=== PATIENT | male | born 1975 | race Caucasian/White ===

== ENCOUNTER 2023-08-16 00:22 | Inpatient (IN) | payer OTHER ==
[~2023-08-16] VITALS: Ht 190.5 cm; Wt 99.8 kg
[~2023-08-16 00:22] MED LIST: OLAN20TA3 PO; QUET100T PO
[2023-08-16 01:34] LABS: BASOPHILS % (AUTO) 0.5 % (0.0-2.0); EOSINOPHILS # (AUTO) 0.4 K/uL (0.0-0.7); EOSINOPHILS % (AUTO) 5.6 % (0.0-6.0); HEMATOCRIT 37 % (39-51); HEMOGLOBIN 12.6 g/dL (13.5-17.5); LYMPHOCYTES # (AUTO) 1.9 K/uL (0.8-4.8); LYMPHOCYTES % (AUTO) 29.5 % (20.0-44.0); MEAN CORPUSCULAR HEMOGLOBIN 32 PG (26.0-33.0); MEAN CORPUSCULAR HGB CONC 34 g/dl (31.0-36.0); MEAN CORPUSCULAR VOLUME 95 fL (80-96); MONOCYTES # (AUTO) 0.8 K/uL (0.1-1.30); MONOCYTES % (AUTO) 12.7 % (2.0-12.0); NEUTROPHILS # (AUTO) 3.3 K/uL (1.8-8.9); NEUTROPHILS % (AUTO) 51.7 % (43.0-81.0); PLATELET COUNT (AUTO) 247 K/uL (150-450); RED BLOOD CELL COUNT(AUTO) 3.91 MIL/uL (4.5-6.0); RED CELL DISTRIBUTION WIDTH 14.3 % (11.5-15.0); WHITE BLOOD COUNT (AUTO) 6.5 K/uL (4.3-11.0)
[2023-08-16 01:54] LABS: CALCIUM, SERUM 9.1 mg/dL (8.5-10.1); CARBON DIOXIDE 26 mmol/L (21-32); CHLORIDE 106 mmol/L (98-107); CREATININE 0.9 mg/dL (0.6-1.3); GLUCOSE 105 mg/dL (74-106); POTASSIUM 3.6 mmol/L (3.5-5.1); SODIUM SERUM 140 mmol/L (136-145); UREA NITROGEN, BLOOD 16 mg/dL (7-18)
[2023-08-16 01:58] LABS: LACTIC ACID 2.5 mmol/L (0.4-2.0)
[2023-08-16 02:05] LABS: ALANINE AMINOTRANSFERASE 10 U/L (12-78); ALBUMIN 3.3 g/dL (3.4-5.0); ALKALINE PHOSPHATASE 93 U/L (46-116); ASPARTATE AMINOTRANSFERASE 15 U/L (15-37); BILIRUBIN,TOTAL 0.2 mg/dL (0.2-1.0); TOTAL PROTEIN, SERUM 6.8 g/dL (6.4-8.2)
[2023-08-16] MEDS ORDERED: VANCOMYCIN 500 MG VIAL ONE (02:19)
[2023-08-16] MEDS: IV NS 0.9% 1,000 ML IV ONE (02:29)
[2023-08-16] MEDS: VANCOMYCIN HCL 1.25 GM in IV D5W 260 ML IV ONE (02:29)
[2023-08-16 04:01] LABS: APPEARANCE,URINE CLEAR (CLEAR); BILIRUBIN,URINE NEGATIVE (NEGATIVE); BLOOD, URINE TRACE-INTA Ery/uL (NEGATIVE); COLOR,URINE YELLOW (YELLOW); KETONES,URINE NEGATIVE (NEGATIVE); LEUKOCYTE ESTERASE ,URINE NEGATIVE (NEGATIVE); NITRITE, URINE NEGATIVE (NEGATIVE); PH,URINE 5.5 (5.0-8.0); PROTEIN,URINE TRACE mg/dl (NEGATIVE); UGLUCOSE NEGATIVE (NEGATIVE); UROBILINOGEN,URINE 0.2 EU/dL (0.2)
[2023-08-16 04:02] LABS: ADD URINE CULTURE NO; BACTERIA,URINE None seen /HPF (None Seen); SQUAMOUS EPITHELIAL CELL,UR Few /HPF (None Seen); WBC,URINE 0-2 /HPF (0-3)
[2023-08-16 04:12] LABS: BARBITURATE, URINE NEGATIVE (NEGATIVE); BENZODIAZEPINE, URINE NEGATIVE (NEGATIVE); CANNABINOID, URINE NEGATIVE (NEGATIVE); COCCAINE, URINE NEGATIVE (NEGATIVE); OPIATE, URINE NEGATIVE (NEGATIVE); PHENCYCLIDINE SCREEN,URINE NEGATIVE (NEGATIVE)
[2023-08-16 04:36] LABS: AMPHETAMINE, URINE POSITIVE (NEGATIVE)
[2023-08-16 04:48] LABS: BILIRUBIN,DIRECT 0.1 mg/dL (0.0-0.2)
[2023-08-16 04:54] LABS: LACTIC ACID REFLEX 1.1 mmol/L (0.4-1.9)
[2023-08-16] MEDS: PIPERACILLIN /TAZOBACTAM 3.375 G in IV D5W 50 ML IV ONE (08:16)
[2023-08-16] MEDS ORDERED: MAG HYDROX/AL HYDROX/SIMETH 30 ML UDC PO PRN (09:00)
[2023-08-16] MEDS ORDERED: ZOLPIDEM TARTRATE 5 MG TABLET PO PRN (09:00)
[2023-08-16] MEDS ORDERED: MAGNESIUM HYDROXIDE 30 ML UDC PO PRN (09:00)
[2023-08-16] MEDS ORDERED: ACETAMINOPHEN 325 MG TABLET PO PRN (09:00)
[2023-08-16] MEDS ORDERED: Z GUARD REMEDY 4 OZ OINT TP PRN (09:00)
[2023-08-16] MEDS ORDERED: ONDANSETRON HCL/PF 4 MG/2 ML VIAL IVP PRN (09:00)
[2023-08-16] MEDS: OLANZAPINE 10 MG TABLET PO SCH (09:55)
[2023-08-16 10:00] VITALS: BP 125/98; TEMP 98.1; O2SAT 100
[2023-08-16] MEDS: VANCOMYCIN 1 GM in IV D5W 250 ML IV SCH (10:00)
[2023-08-16] MEDS ORDERED: FENTANYL PF 100MCG/2ML AMPUL ONE (10:35)
[2023-08-16] MEDS ORDERED: KETAMINE HCL (500MG/10ML) 50 MG/ML VIAL ONE (10:35)
[2023-08-16] MEDS ORDERED: MIDAZOLAM HCL 2 MG/2ML VIAL ONE (10:35)
[2023-08-16] MEDS ORDERED: FAMOTIDINE/PF INJ 20 MG/2 ML VIAL IV ONE (10:36)
[2023-08-16] MEDS ORDERED: BUPIVACAINE 0.5 % PF 150 MG/30 ML VIAL ONE (10:37)
[2023-08-16] MEDS ORDERED: VANCOMYCIN 1 GM VIAL ONE (11:27)
[2023-08-16] MEDS: PIPERACILLIN /TAZOBACTAM 3.375 G in IV D5W 50 ML IV SCH (12:00)
[2023-08-16 12:50] VITALS: BP 115/79; TEMP 98.2; O2SAT 100
[2023-08-16 13:20] VITALS: BP 112/77; TEMP 98; O2SAT 97
[2023-08-16 13:50] VITALS: BP 115/80; TEMP 98.1; O2SAT 98
[2023-08-16 16:00] VITALS: BP 121/87; TEMP 98.2; O2SAT 100
[2023-08-16] MEDS: QUETIAPINE FUMARATE 100 MG TABLET PO SCH (17:19)
[2023-08-16 20:00] VITALS: BP 115/84; TEMP 98.2; O2SAT 100
[2023-08-17] MEDS: IV NS 0.9% 1,000 ML IV PRN (00:11)
[2023-08-17] MEDS: HYDROCODONE/APAP 10/325MG TABLET PO PRN (09:35)
[2023-08-17] MEDS: HYDROMORPHONE 1 MG/1 ML DISP.SYRIN IV PRN (11:52)
[2023-08-17 12:58] LABS: ALBUMIN 2.9 g/dL (3.4-5.0); BILIRUBIN,TOTAL 0.2 mg/dL (0.2-1.0); CALCIUM, SERUM 8.5 mg/dL (8.5-10.1); CREATININE 0.8 mg/dL (0.6-1.3); PHOSPHORUS 3.8 mg/dL (2.5-4.9); POTASSIUM 3.4 mmol/L (3.5-5.1)
[2023-08-17 13:24] LABS: BASOPHILS % (AUTO) 0.4 % (0.0-2.0); EOSINOPHILS # (AUTO) 0.5 K/uL (0.0-0.7); EOSINOPHILS % (AUTO) 9.5 % (0.0-6.0); HEMATOCRIT 35 % (39-51); HEMOGLOBIN 11.8 g/dL (13.5-17.5); LYMPHOCYTES # (AUTO) 1.6 K/uL (0.8-4.8); LYMPHOCYTES % (AUTO) 28.3 % (20.0-44.0); MEAN CORPUSCULAR HEMOGLOBIN 32 PG (26.0-33.0); MEAN CORPUSCULAR HGB CONC 34 g/dl (31.0-36.0); MEAN CORPUSCULAR VOLUME 95 fL (80-96); MONOCYTES # (AUTO) 0.6 K/uL (0.1-1.30); MONOCYTES % (AUTO) 10.2 % (2.0-12.0); NEUTROPHILS % (AUTO) 51.6 % (43.0-81.0); PLATELET COUNT (AUTO) 209 K/uL (150-450); RED CELL DISTRIBUTION WIDTH 14.4 % (11.5-15.0); WHITE BLOOD COUNT (AUTO) 5.7 K/uL (4.3-11.0)
[2023-08-17 16:00] VITALS: BP 107/71; TEMP 98.4; O2SAT 99
[2023-08-17] MEDS: VANCOMYCIN HCL 1.25 GM in IV D5W 250 ML IV SCH (17:30)
[2023-08-17] MEDS: POTASSIUM CHLORIDE 20 MEQ TAB.PRT.SR PO ONE (17:58)
[2023-08-17 20:00] VITALS: BP 116/83; TEMP 97.5; TEMP 97.9; O2SAT 100
[2023-08-18 06:44] LABS: BASOPHILS % (AUTO) 0.1 % (0.0-2.0); EOSINOPHILS # (AUTO) 0.5 K/uL (0.0-0.7); EOSINOPHILS % (AUTO) 8.1 % (0.0-6.0); HEMATOCRIT 34 % (39-51); HEMOGLOBIN 11.4 g/dL (13.5-17.5); LYMPHOCYTES # (AUTO) 1.7 K/uL (0.8-4.8); LYMPHOCYTES % (AUTO) 28.5 % (20.0-44.0); MEAN CORPUSCULAR HEMOGLOBIN 32 PG (26.0-33.0); MEAN CORPUSCULAR HGB CONC 33 g/dl (31.0-36.0); MEAN CORPUSCULAR VOLUME 95 fL (80-96); MONOCYTES # (AUTO) 0.6 K/uL (0.1-1.30); MONOCYTES % (AUTO) 10.4 % (2.0-12.0); NEUTROPHILS # (AUTO) 3.1 K/uL (1.8-8.9); NEUTROPHILS % (AUTO) 52.9 % (43.0-81.0); PLATELET COUNT (AUTO) 184 K/uL (150-450); RED CELL DISTRIBUTION WIDTH 14.2 % (11.5-15.0); WHITE BLOOD COUNT (AUTO) 5.8 K/uL (4.3-11.0)
[2023-08-18 07:11] LABS: CALCIUM, SERUM 8.3 mg/dL (8.5-10.1); CREATININE 0.7 mg/dL (0.6-1.3); POTASSIUM 3.8 mmol/L (3.5-5.1)
[2023-08-18 08:25] VITALS: BP 124/75; TEMP 98; O2SAT 98
[2023-08-18 16:10] VITALS: BP 115/80; TEMP 97.8; O2SAT 100
[2023-08-18 20:00] VITALS: BP 120/88; TEMP 97.9; O2SAT 100
[2023-08-19 09:20] LABS: BASOPHILS % (AUTO) 0.6 % (0.0-2.0); EOSINOPHILS # (AUTO) 0.4 K/uL (0.0-0.7); EOSINOPHILS % (AUTO) 8.3 % (0.0-6.0); HEMATOCRIT 35 % (39-51); HEMOGLOBIN 11.9 g/dL (13.5-17.5); LYMPHOCYTES # (AUTO) 1.6 K/uL (0.8-4.8); LYMPHOCYTES % (AUTO) 30.2 % (20.0-44.0); MEAN CORPUSCULAR HEMOGLOBIN 32 PG (26.0-33.0); MEAN CORPUSCULAR HGB CONC 34 g/dl (31.0-36.0); MEAN CORPUSCULAR VOLUME 94 fL (80-96); MONOCYTES # (AUTO) 0.6 K/uL (0.1-1.30); MONOCYTES % (AUTO) 10.8 % (2.0-12.0); NEUTROPHILS # (AUTO) 2.7 K/uL (1.8-8.9); NEUTROPHILS % (AUTO) 50.1 % (43.0-81.0); PLATELET COUNT (AUTO) 197 K/uL (150-450); RED BLOOD CELL COUNT(AUTO) 3.71 MIL/uL (4.5-6.0); RED CELL DISTRIBUTION WIDTH 13.9 % (11.5-15.0); WHITE BLOOD COUNT (AUTO) 5.3 K/uL (4.3-11.0)
[2023-08-19 09:27] LABS: CALCIUM, SERUM 8.5 mg/dL (8.5-10.1); CREATININE 0.9 mg/dL (0.6-1.3); POTASSIUM 3.5 mmol/L (3.5-5.1)
[2023-08-19 20:00] VITALS: BP 114/79; TEMP 97.5; O2SAT 99
[2023-08-20 07:30] VITALS: BP 95/65; TEMP 97.7; O2SAT 94
[2023-08-20 09:37] LABS: BASOPHILS % (AUTO) 0.3 % (0.0-2.0); EOSINOPHILS # (AUTO) 0.5 K/uL (0.0-0.7); EOSINOPHILS % (AUTO) 7.7 % (0.0-6.0); HEMATOCRIT 37 % (39-51); HEMOGLOBIN 12.4 g/dL (13.5-17.5); LYMPHOCYTES # (AUTO) 1.9 K/uL (0.8-4.8); LYMPHOCYTES % (AUTO) 30.6 % (20.0-44.0); MEAN CORPUSCULAR HEMOGLOBIN 32 PG (26.0-33.0); MEAN CORPUSCULAR HGB CONC 34 g/dl (31.0-36.0); MEAN CORPUSCULAR VOLUME 95 fL (80-96); MONOCYTES # (AUTO) 0.7 K/uL (0.1-1.30); MONOCYTES % (AUTO) 10.7 % (2.0-12.0); NEUTROPHILS # (AUTO) 3.2 K/uL (1.8-8.9); NEUTROPHILS % (AUTO) 50.7 % (43.0-81.0); PLATELET COUNT (AUTO) 215 K/uL (150-450); RED BLOOD CELL COUNT(AUTO) 3.86 MIL/uL (4.5-6.0); RED CELL DISTRIBUTION WIDTH 13.9 % (11.5-15.0); WHITE BLOOD COUNT (AUTO) 6.2 K/uL (4.3-11.0)
[2023-08-20 09:44] LABS: CALCIUM, SERUM 8.7 mg/dL (8.5-10.1); POTASSIUM 3.5 mmol/L (3.5-5.1)
[2023-08-21 08:00] VITALS: BP 110/76; TEMP 97.9; O2SAT 99
[2023-08-21] MEDS: METRONIDAZOLE 500MG/ NS 100ML 500 MG in PREMIX 1 EA IV SCH (13:50)
[2023-08-21] MEDS: CEFTRIAXONE 2 G in IV D5W 100 ML IV SCH (14:56)
[2023-08-21 16:00] VITALS: BP 100/63; TEMP 98.4; O2SAT 99
[2023-08-21 20:00] VITALS: BP 111/76; TEMP 97.9; O2SAT 100
[2023-08-22 08:00] VITALS: BP 94/65; TEMP 97.9; O2SAT 98
[2023-08-22] MEDS ORDERED: AMOX-430 PO (10:50)
== END 2023-08-22 14:00 | disposition home or self-care (01) | DRG 314 ==
LOC: ER 00:26 → MED 08:52
PROVIDERS: ADMIT Internal Medicine; ATTEND Internal Medicine
PROC: 0QBR0ZZ Excision of Left Toe Phalanx, Open Approach (ICD-10-PCS; principal; 2023-08-16)
PROC: 0SNQ0ZZ Release Left Toe Phalangeal Joint, Open Approach (ICD-10-PCS; 2023-08-16)
DX: M86.8X7 Other osteomyelitis, ankle and foot (principal); E87.20 Acidosis, unspecified; E44.1 Mild protein-calorie malnutrition; D63.8 Anemia in other chronic diseases classified elsewhere; L97.529 Non-pressure chronic ulcer of other part of left foot with unspecified severity; M87.9 Osteonecrosis, unspecified; I10 Essential (primary) hypertension; L03.032 Cellulitis of left toe; Z59.00 Homelessness unspecified; F17.210 Nicotine dependence, cigarettes, uncomplicated; E78.5 Hyperlipidemia, unspecified; Z79.899 Other long term (current) drug therapy; F15.11 Other stimulant abuse, in remission; Z89.432 Acquired absence of left foot
CPT/HCPCS: 36415; 73630-TC; 73700-TC; 80048-TC; 80053-TC; 80202-TC; 81001; 82248-TC; 83605-TC; 83735-TC; 84100-TC; 85025-TC; 86850-TC; 87040-TC; 88305-TC; 88311-TC; 97110-TC; 97112-TC; 97530-TC; A4216; A4223; G0378; J0696; J1100; J1170; J1885; J2250; J2405; J2543; J2704; J2765; J3010; J3370; J3490; J7030; J7050; J7060

== ENCOUNTER 2023-08-31 22:28 | Emergency (ER) | payer OTHER ==
[~2023-08-31] VITALS: Ht 182.9 cm; Wt 86.2 kg
[~2023-08-31 22:28] MED LIST changes: +AMOX-430 PO
[2023-08-31] MEDS ORDERED: IBUPROFEN 400 MG TABLET ONE (23:37)
[2023-08-31] MEDS: IBUPROFEN 400 MG TABLET PO ONE (23:39)
[2023-08-31 23:47] LABS: BASOPHILS # (AUTO) 0.1 K/uL (0.0-0.2); EOSINOPHILS # (AUTO) 0.3 K/uL (0.0-0.7); EOSINOPHILS % (AUTO) 2.9 % (0.0-6.0); HEMATOCRIT 44 % (39-51); HEMOGLOBIN 14.4 g/dL (13.5-17.5); LYMPHOCYTES # (AUTO) 2.4 K/uL (0.8-4.8); LYMPHOCYTES % (AUTO) 21.5 % (20.0-44.0); MEAN CORPUSCULAR HEMOGLOBIN 31 PG (26.0-33.0); MEAN CORPUSCULAR HGB CONC 33 g/dl (31.0-36.0); MEAN CORPUSCULAR VOLUME 94 fL (80-96); MONOCYTES # (AUTO) 0.7 K/uL (0.1-1.30); NEUTROPHILS # (AUTO) 7.6 K/uL (1.8-8.9); NEUTROPHILS % (AUTO) 68.6 % (43.0-81.0); PLATELET COUNT (AUTO) 290 K/uL (150-450); RED BLOOD CELL COUNT(AUTO) 4.64 MIL/uL (4.5-6.0); RED CELL DISTRIBUTION WIDTH 14.1 % (11.5-15.0); WHITE BLOOD COUNT (AUTO) 11.1 K/uL (4.3-11.0)
[2023-09-01 00:28] LABS: CALCIUM, SERUM 9.4 mg/dL (8.5-10.1); CARBON DIOXIDE 26 mmol/L (21-32); CHLORIDE 103 mmol/L (98-107); CREATININE 0.9 mg/dL (0.6-1.3); GLUCOSE 133 mg/dL (74-106); POTASSIUM 3.8 mmol/L (3.5-5.1); SODIUM SERUM 139 mmol/L (136-145); UREA NITROGEN, BLOOD 17 mg/dL (7-18)
[2023-09-01 00:34] LABS: ACETAMINOPHEN <10 ug/ml (10-30); ALANINE AMINOTRANSFERASE 25 U/L (12-78); ALBUMIN 3.7 g/dL (3.4-5.0); ALCOHOL, BLOOD 3 mg/dL (0-10); ALKALINE PHOSPHATASE 69 U/L (46-116); ASPARTATE AMINOTRANSFERASE 24 U/L (15-37); BILIRUBIN,DIRECT 0.1 mg/dL (0.0-0.2); BILIRUBIN,TOTAL 0.2 mg/dL (0.2-1.0); SALICYLATE 2.1 mg/dL (2.8-20.0)
[2023-09-01 01:54] LABS: APPEARANCE,URINE CLEAR (CLEAR); BILIRUBIN,URINE NEGATIVE (NEGATIVE); BLOOD, URINE NEGATIVE Ery/uL (NEGATIVE); COLOR,URINE YELLOW (YELLOW); KETONES,URINE NEGATIVE (NEGATIVE); LEUKOCYTE ESTERASE ,URINE NEGATIVE (NEGATIVE); NITRITE, URINE NEGATIVE (NEGATIVE); PROTEIN,URINE NEGATIVE (NEGATIVE); UGLUCOSE NEGATIVE (NEGATIVE); UROBILINOGEN,URINE 0.2 EU/dL (0.2)
[2023-09-01 02:04] LABS: AMPHETAMINE, URINE NEGATIVE (NEGATIVE); BARBITURATE, URINE NEGATIVE (NEGATIVE); BENZODIAZEPINE, URINE NEGATIVE (NEGATIVE); CANNABINOID, URINE NEGATIVE (NEGATIVE); COCCAINE, URINE NEGATIVE (NEGATIVE); PHENCYCLIDINE SCREEN,URINE NEGATIVE (NEGATIVE)
[2023-09-01 02:08] LABS: OPIATE, URINE POSITIVE (NEGATIVE)
[2023-09-01 06:57] VITALS: BP 127/70; TEMP 98; O2SAT 98
== END 2023-09-01 06:57 | disposition left against medical advice (07) ==
LOC: ER 22:38
DX: Z48.02 Encounter for removal of sutures (principal); F20.9 Schizophrenia, unspecified; I10 Essential (primary) hypertension; Z20.822 Contact with and (suspected) exposure to COVID-19
CPT/HCPCS: 36415; 80048-TC; 80076-TC; 85025-TC; G0480

== ENCOUNTER 2023-11-29 21:53 | Emergency (ER) | payer OTHER ==
[~2023-11-29] VITALS: Ht 190.5 cm; Wt 99.8 kg
[2023-11-30 00:33] LABS: BASOPHILS # (AUTO) 0.1 K/uL (0.0-0.2); BASOPHILS % (AUTO) 0.4 % (0.0-2.0); EOSINOPHILS # (AUTO) 0.1 K/uL (0.0-0.7); EOSINOPHILS % (AUTO) 0.4 % (0.0-6.0); HEMATOCRIT 39 % (39-51); HEMOGLOBIN 12.9 g/dL (13.5-17.5); LYMPHOCYTES # (AUTO) 1.6 K/uL (0.8-4.8); LYMPHOCYTES % (AUTO) 12.6 % (20.0-44.0); MEAN CORPUSCULAR HEMOGLOBIN 31 PG (26.0-33.0); MEAN CORPUSCULAR HGB CONC 34 g/dl (31.0-36.0); MEAN CORPUSCULAR VOLUME 93 fL (80-96); MONOCYTES # (AUTO) 0.6 K/uL (0.1-1.30); MONOCYTES % (AUTO) 4.4 % (2.0-12.0); NEUTROPHILS # (AUTO) 10.6 K/uL (1.8-8.9); NEUTROPHILS % (AUTO) 82.2 % (43.0-81.0); PLATELET COUNT (AUTO) 255 K/uL (150-450); RED BLOOD CELL COUNT(AUTO) 4.14 MIL/uL (4.5-6.0); RED CELL DISTRIBUTION WIDTH 14.3 % (11.5-15.0); WHITE BLOOD COUNT (AUTO) 12.9 K/uL (4.3-11.0)
[2023-11-30 00:34] LABS: APPEARANCE,URINE CLEAR (CLEAR); BILIRUBIN,URINE NEGATIVE (NEGATIVE); BLOOD, URINE TRACE-INTA Ery/uL (NEGATIVE); COLOR,URINE YELLOW (YELLOW); KETONES,URINE NEGATIVE (NEGATIVE); LEUKOCYTE ESTERASE ,URINE NEGATIVE (NEGATIVE); NITRITE, URINE NEGATIVE (NEGATIVE); PROTEIN,URINE TRACE mg/dl (NEGATIVE); UGLUCOSE NEGATIVE (NEGATIVE); UROBILINOGEN,URINE 0.2 EU/dL (0.2)
[2023-11-30 00:35] LABS: ADD URINE CULTURE NO; BACTERIA,URINE Rare /HPF (None Seen); SQUAMOUS EPITHELIAL CELL,UR Few /HPF (None Seen); WBC,URINE 0-2 /HPF (0-3)
[2023-11-30 00:55] LABS: CREATININE 0.8 mg/dL (0.6-1.3); POTASSIUM 3.4 mmol/L (3.5-5.1)
[2023-11-30 00:58] LABS: AMPHETAMINE, URINE POSITIVE (NEGATIVE); BARBITURATE, URINE NEGATIVE (NEGATIVE); BENZODIAZEPINE, URINE NEGATIVE (NEGATIVE); CANNABINOID, URINE NEGATIVE (NEGATIVE); COCCAINE, URINE NEGATIVE (NEGATIVE); OPIATE, URINE NEGATIVE (NEGATIVE); PHENCYCLIDINE SCREEN,URINE NEGATIVE (NEGATIVE)
[2023-11-30 01:01] LABS: ALBUMIN 3.3 g/dL (3.4-5.0); BILIRUBIN,DIRECT 0.1 mg/dL (0.0-0.2); BILIRUBIN,TOTAL 0.3 mg/dL (0.2-1.0); TOTAL PROTEIN, SERUM 7.3 g/dL (6.4-8.2)
[2023-11-30 04:01] VITALS: BP 135/71; TEMP 98.1; O2SAT 99
== END 2023-11-30 04:02 ==
LOC: ER 21:59
DX: R45.851 Suicidal ideations (principal); F19.10 Other psychoactive substance abuse, uncomplicated; F20.9 Schizophrenia, unspecified; I10 Essential (primary) hypertension; Z20.822 Contact with and (suspected) exposure to COVID-19; Z59.00 Homelessness unspecified
CPT/HCPCS: 36415; 80048-TC; 80076-TC; 81001; 85025-TC; G0480

== ENCOUNTER 2024-08-13 19:55 | Emergency (ER) | payer OTHER ==
[~2024-08-13] VITALS: Ht 190.5 cm; Wt 102.1 kg
[~2024-08-13 19:55] MED LIST changes: +CEPH500C2 PO; +SULF1TAB48 PO
[2024-08-13 20:37] LABS: APPEARANCE,URINE CLEAR (CLEAR); BILIRUBIN,URINE NEGATIVE (NEGATIVE); BLOOD, URINE NEGATIVE Ery/uL (NEGATIVE); COLOR,URINE YELLOW (YELLOW); KETONES,URINE NEGATIVE (NEGATIVE); LEUKOCYTE ESTERASE ,URINE NEGATIVE (NEGATIVE); NITRITE, URINE NEGATIVE (NEGATIVE); PROTEIN,URINE NEGATIVE (NEGATIVE); UGLUCOSE NEGATIVE (NEGATIVE); UROBILINOGEN,URINE 0.2 EU/dL (0.2)
[2024-08-13 20:51] LABS: BARBITURATE, URINE NEGATIVE (NEGATIVE); CANNABINOID, URINE NEGATIVE (NEGATIVE); COCCAINE, URINE NEGATIVE (NEGATIVE); OPIATE, URINE NEGATIVE (NEGATIVE); PHENCYCLIDINE SCREEN,URINE NEGATIVE (NEGATIVE)
[2024-08-13 20:56] LABS: BASOPHILS % (AUTO) 0.8 % (0.0-2.0); EOSINOPHILS # (AUTO) 0.2 K/uL (0.0-0.7); EOSINOPHILS % (AUTO) 2.9 % (0.0-6.0); HEMATOCRIT 42 % (39-51); LYMPHOCYTES # (AUTO) 1.6 K/uL (0.8-4.8); LYMPHOCYTES % (AUTO) 27.5 % (20.0-44.0); MEAN CORPUSCULAR HEMOGLOBIN 32 PG (26.0-33.0); MEAN CORPUSCULAR HGB CONC 34 g/dl (31.0-36.0); MEAN CORPUSCULAR VOLUME 95 fL (80-96); MONOCYTES # (AUTO) 0.6 K/uL (0.1-1.30); MONOCYTES % (AUTO) 9.7 % (2.0-12.0); NEUTROPHILS # (AUTO) 3.4 K/uL (1.8-8.9); NEUTROPHILS % (AUTO) 59.1 % (43.0-81.0); PLATELET COUNT (AUTO) 285 K/uL (150-450); RED BLOOD CELL COUNT(AUTO) 4.35 MIL/uL (4.5-6.0); RED CELL DISTRIBUTION WIDTH 13.5 % (11.5-15.0); WHITE BLOOD COUNT (AUTO) 5.7 K/uL (4.3-11.0)
[2024-08-13 20:56] LABS: AMPHETAMINE, URINE POSITIVE (NEGATIVE); BENZODIAZEPINE, URINE POSITIVE (NEGATIVE)
[2024-08-13 21:15] LABS: CALCIUM, SERUM 9.3 mg/dL (8.5-10.1); CARBON DIOXIDE 29 mmol/L (21-32); CHLORIDE 107 mmol/L (98-107); CREATININE 1.1 mg/dL (0.6-1.3); GLUCOSE 93 mg/dL (74-106); POTASSIUM 3.7 mmol/L (3.5-5.1); SODIUM SERUM 144 mmol/L (136-145); UREA NITROGEN, BLOOD 15 mg/dL (7-18)
[2024-08-13 21:21] LABS: ALANINE AMINOTRANSFERASE 12 U/L (12-78); ALBUMIN 3.8 g/dL (3.4-5.0); ALCOHOL, BLOOD < 3 mg/dL (0-10); ALKALINE PHOSPHATASE 77 U/L (46-116); ASPARTATE AMINOTRANSFERASE 16 U/L (15-37); BILIRUBIN,DIRECT 0.1 mg/dL (0.0-0.2); BILIRUBIN,TOTAL 0.4 mg/dL (0.2-1.0); TOTAL PROTEIN, SERUM 7.5 g/dL (6.4-8.2)
[2024-08-13 21:23] LABS: ACETAMINOPHEN 0 ug/ml (10-30); SALICYLATE 1.3 mg/dL (2.8-20.0)
[2024-08-14 00:15] VITALS: BP 133/70; TEMP 98.2; O2SAT 99
== END 2024-08-14 00:55 ==
LOC: ER 19:57
DX: R45.851 Suicidal ideations (principal); F19.10 Other psychoactive substance abuse, uncomplicated; F23 Brief psychotic disorder; F32.A Depression, unspecified; I10 Essential (primary) hypertension; Z59.00 Homelessness unspecified; Z79.899 Other long term (current) drug therapy; Z20.822 Contact with and (suspected) exposure to COVID-19
CPT/HCPCS: 36415; 80048-TC; 80076-TC; 85025-TC; G0480

== ENCOUNTER 2025-03-23 14:05 | Inpatient (IN) | payer MEDICAID, OTHER ==
[~2025-03-23] VITALS: Ht 190.5 cm; Wt 104.3 kg
[~2025-03-23 14:05] MED LIST changes: +DOXY100C2 PO
[2025-03-23 14:53] LABS: PLATELET COUNT (AUTO) 263 K/uL (150-450); RED BLOOD CELL COUNT(AUTO) 4.61 MIL/uL (4.5-6.0); RED CELL DISTRIBUTION WIDTH 13.6 % (11.5-15.0); WHITE BLOOD COUNT (AUTO) 7.7 K/uL (4.3-11.0)
[2025-03-23 14:58] LABS: CALCIUM, SERUM 9.3 mg/dL (8.5-10.1); CREATININE 1.1 mg/dL (0.6-1.3); SODIUM SERUM 138.0 mmol/L (136-145); UREA NITROGEN, BLOOD 20.0 mg/dL (7-18)
[2025-03-23] MEDS ORDERED: FOLIC ACID 1 MG TABLET ONE (14:58)
[2025-03-23] MEDS ORDERED: THIAMINE HCL 100 MG TABLET ONE (14:58)
[2025-03-23] MEDS ORDERED: LORAZEPAM INJ 2 MG/ML VIAL ONE (14:59)
[2025-03-23 15:04] LABS: ASPARTATE AMINOTRANSFERASE 49.0 U/L (15-37); TOTAL PROTEIN, SERUM 8.3 g/dL (6.4-8.2)
[2025-03-23] MEDS: FOLIC ACID 1 MG TABLET PO ONE (15:06)
[2025-03-23] MEDS: LORAZEPAM INJ 2 MG/ML VIAL IV ONE (15:06)
[2025-03-23] MEDS: THIAMINE HCL 100 MG TABLET PO ONE (15:06)
[2025-03-23] MEDS: IV NS 0.9% 1,000 ML BAG IV ONE (15:06)
[2025-03-23 15:11] LABS: INR 1.04 (0.91-1.10)
[2025-03-23 15:17] LABS: LYMPHOCYTES % (MANUAL) 32 % (16-48); MONOCYTES % (MANUAL) 12 % (0-11.0); NEUTROPHILS % (MANUAL) 56 (42-76)
[2025-03-23 15:18] LABS: PLATELET ESTIMATE ADEQUATE
[2025-03-23] MEDS: PANTOPRAZOLE 80 MG in IV NS 0.9% 100 ML IV ONE (15:44)
[2025-03-23] MEDS ORDERED: BUPR150T10 PO (16:02)
[2025-03-23] MEDS ORDERED: QUET400T PO (16:02)
[2025-03-23] MEDS: PANTOPRAZOLE 80 MG in IV NS 0.9% 500 ML IV ONE (16:10)
[2025-03-23 17:00] VITALS: BP 146/75; TEMP 98; O2SAT 98
[2025-03-24] MEDS ORDERED: CHLORDIAZEPOXIDE HCL 25 MG CAPSULE PO SCH (00:30)
[2025-03-24] MEDS ORDERED: LORAZEPAM 0.5 MG TABLET PO PRN (00:30)
[2025-03-24] MEDS ORDERED: ONDANSETRON HCL/PF 4 MG/2 ML VIAL IVP PRN (00:30)
[2025-03-24] MEDS ORDERED: IV D5/0.45 NACL 1,000 ML IV PRN (00:30)
[2025-03-24] MEDS ORDERED: Z GUARD REMEDY 4 OZ OINT TP PRN (00:30)
[2025-03-24] MEDS ORDERED: ACETAMINOPHEN 325 MG TABLET PO PRN (00:30)
[2025-03-24] MEDS ORDERED: FOLIC ACID 1 MG TABLET PO SCH (09:00)
[2025-03-24] MEDS ORDERED: PANTOPRAZOLE 40 MG VIAL IV SCH (09:00)
[2025-03-24] MEDS ORDERED: THIAMINE HCL 100 MG TABLET PO SCH (09:00)
== END 2025-03-24 00:25 | disposition left against medical advice (07) | DRG 241 ==
LOC: ER 14:05 → TELE 20:57
PROVIDERS: ADMIT Nurse Practitioner Family; ATTEND Nurse Practitioner Family
DX: K29.21 Alcoholic gastritis with bleeding (principal); E87.6 Hypokalemia; F10.139 Alcohol abuse with withdrawal, unspecified; F17.200 Nicotine dependence, unspecified, uncomplicated; F20.9 Schizophrenia, unspecified; F43.10 Post-traumatic stress disorder, unspecified; I10 Essential (primary) hypertension; K70.10 Alcoholic hepatitis without ascites; Z79.899 Other long term (current) drug therapy; Z53.29 Procedure and treatment not carried out because of patient's decision for other reasons; G62.9 Polyneuropathy, unspecified; Y90.9 Presence of alcohol in blood, level not specified
CPT/HCPCS: 36415; 80048-TC; 80076-TC; 83690-TC; 85027-TC; 85730-TC; 86850-TC; G0378; J2060; J2470; J7030; J7040